=== PATIENT | male | born 1950 | race African-American/Black ===

== ENCOUNTER 2021-01-31 14:38 | Inpatient (IN) ==
[2021-01-31] MEDS ORDERED: FUROSEMIDE 100 MG/10 ML VIAL IV STA (15:21)
[2021-01-31 15:50] LABS: Basophils % 0.4 % (0.0-0.8); Eosinophils % 0.1 % (0.00-10.9); Hematocrit 32.3 VOL% (42.0-52.0); Immature Granulocytes % 0.4 %; Immature Granulocytes Absolute 0.03 #; Lymphocytes # 0.7 10*3/uL (1.4-4.0); Lymphocytes % 8.9 % (21.2-54.2); Mean Corpuscular Volume 95.3 FL (87-102); Mean Platelet Volume 12.2 FL (9.6-12.0); Neutrophils % 87.2 % (38.7-73.9); Platelet Count 161 T/CUMM (130-400); Red Blood Count 3.39 MC/CUMM (3.8-5.5); Red Cell Distribution Width 14.1 % (9.3-17.3); White Blood Count 7.6 T/CUMM (4-12)
[2021-01-31] MEDS ORDERED: LIDOCAINE 1% 20 ML VIAL ONE (15:58)
[2021-01-31] MEDS ORDERED: HYDROmorphone 2 MG/1 ML VIAL ONE (15:59)
[2021-01-31] MEDS ORDERED: MIDAZOLAM 2 MG/2 ML VIAL ONE (15:59)
[2021-01-31] MEDS ORDERED: diphenhydrAMINE CAP 25 MG CAPSULE PO ONE (16:00)
[2021-01-31] MEDS ORDERED: DIAZEPAM 5 MG TABLET PO ONE (16:00)
[2021-01-31] MEDS ORDERED: MAGNESIUM SULF RIDER 2 GM/50 ML PREMIX IV PRN (16:00)
[2021-01-31] MEDS ORDERED: POTASSIUM CHLORIDE RIDER 10 MEQ/100 ML PREMIX IV PRN (16:00)
[2021-01-31] MEDS ORDERED: NITROGLYCERIN SL 0.4 MG TABLET SL PRN (16:12)
[2021-01-31] MEDS ORDERED: ASPIRIN 325 MG TABLET ONE (16:13)
[2021-01-31 16:14] LABS: Albumin 3.4 G/DL (3.4-5.0); Bilirubin,Total 0.7 MG/DL (0.20-1.00); Calcium 10.2 MG/DL (8.5-10.1); Osmolality,Calculated 291.7 MOS/KG (273-304); Potassium 4.5 MMOL/L (3.5-5.1)
[2021-01-31] MEDS ORDERED: HEPARIN 5,000 UNIT/1 ML VIAL ONE (16:33)
[2021-01-31] MEDS ORDERED: TIROFIBAN 5,000 MCG/100 ML PREMIX IV ONE (17:06)
[2021-01-31] MEDS ORDERED: hydrALAZINE 20 MG/1 ML VIAL ONE (17:13)
[2021-01-31] MEDS ORDERED: PRASUGREL 10 MG TABLET ONE (17:17)
[2021-01-31] MEDS ORDERED: amLODIPine 5 MG TABLET PO STA (17:19)
[2021-01-31] MEDS ORDERED: TIROFIBAN 5,000 MCG/100 ML PREMIX IV SCH (17:30)
[2021-01-31] MEDS ORDERED: NALOXONE 0.4 MG/ML VIAL ONE (17:43)
[2021-01-31] MEDS ORDERED: NALOXONE 0.4 MG/ML VIAL IV STA ×2 (18:05→18:22)
[2021-01-31] MEDS ORDERED: PRASUGREL 10 MG TABLET PO STA (18:35)
[2021-01-31] MEDS ORDERED: FUROSEMIDE 40 MG/4 ML VIAL ONE (19:37)
[2021-01-31] MEDS ORDERED: FUROSEMIDE 40 MG/4 ML VIAL IV ONE (19:37)
[2021-01-31 20:10] LABS: CKMB % 3.1 %; High Sensitive Troponin I* 775.4 ng/L (0-78)
[2021-01-31] MEDS ORDERED: NITROGLYCERIN DRIP 50 MG/250 ML BOTTLE IV PRN (20:39)
[2021-01-31 21:00] LABS: ABG Base Excess -2.7 MMOL/L (-2.5-2.5); ABG HCO3 22.1 MMOL/L (20-26); ABG Oxygen Saturation 92.5 % (95-100); ABG PCO2 49.3 MM HG (35-48); ABG PH 7.297 (7.35-7.45); ABG PO2 76.3 MM HG (80-95); ABG TCO2 22.3 MMOL/L (23-27)
[2021-01-31] MEDS ORDERED: carvediloL 3.125 MG TABLET PO SCH (21:00)
[2021-01-31] MEDS ORDERED: carvediloL 6.25 MG TABLET PO SCH (21:00)
[2021-01-31] MEDS ORDERED: NALOXONE 0.4 MG/ML VIAL IV ONE (21:36)
[2021-01-31] MEDS: hydrALAZINE 25 MG TABLET PO SCH (22:02)
[2021-01-31] MEDS: ROSUVASTATIN 20 MG TABLET PO SCH (23:08)
[2021-02-01 04:04] LABS: ABG Base Excess 0.8 MMOL/L (-2.5-2.5); ABG Oxygen Saturation 84.7 % (95-100); ABG PCO2 41.4 MM HG (35-48); ABG PH 7.401 (7.35-7.45); ABG PO2 54.4 MM HG (80-95); ABG TCO2 23.6 MMOL/L (23-27)
[2021-02-01 05:44] LABS: Basophils % 0.3 % (0.0-0.8); Hematocrit 30.9 VOL% (42.0-52.0); Hemoglobin 9.5 GM/DL (14.0-18.0); Immature Granulocytes % 0.3 %; Immature Granulocytes Absolute 0.01 #; Lymphocytes # 0.5 10*3/uL (1.4-4.0); Lymphocytes % 15.1 % (21.2-54.2); Mean Corpuscular HGB Conc 30.7 GM/DL (32-36); Mean Corpuscular Volume 94.5 FL (87-102); Mean Platelet Volume 12.1 FL (9.6-12.0); Monocytes % 3.3 % (1.7-12.7); Platelet Count 148 T/CUMM (130-400); Red Blood Count 3.27 MC/CUMM (3.8-5.5); White Blood Count 3.3 T/CUMM (4-12)
[2021-02-01 05:55] LABS: CKMB % 5.8 %; High Sensitive Troponin I* 5256.1 ng/L (0-78)
[2021-02-01 06:07] LABS: Calcium 9.9 MG/DL (8.5-10.1); Osmolality,Calculated 289.8 MOS/KG (273-304); Potassium 4.3 MMOL/L (3.5-5.1)
[2021-02-01 06:20] LABS: Risk Ratio 2.49; VLDL Cholesterol 14.8 MG/DL
[2021-02-01 06:21] LABS: Acanthocytes Few; Band Neutrophils 11 % (0-10); Eosinophils 1 % (0-10); Hypochromasia 1+; Lymphocytes 12 % (20-55); Microcytosis Slight; Segmented Neutrophils 70 % (50-85); Total Cells Counted 100
[2021-02-01 06:22] LABS: Platelet Estimate Adequate
[2021-02-01] MEDS ORDERED: PRASUGREL 10 MG TABLET PO ONE (07:50)
[2021-02-01] MEDS: PRASUGREL 10 MG TABLET PO SCH (08:38)
[2021-02-01] MEDS: hydrALAZINE 25 MG TABLET PO SCH ×3 (08:50→21:07)
[2021-02-01] MEDS: MULTIVITAMIN (CENTRUM) TABLET PO SCH (08:50)
[2021-02-01] MEDS: FOLIC ACID INJ 1 MG in SYRINGE 1 EACH IV SCH (08:51)
[2021-02-01] MEDS: ASPIRIN EC 81 MG TABLET PO SCH (08:51)
[2021-02-01] MEDS: cefTRIAXone 1,000 MG in SODIUM CHLORIDE 0.9% 100 ML IV SCH (08:51)
[2021-02-01] MEDS ORDERED: LISINOPRIL/HCTZ 20-12.5 MG TABLET PO SCH (09:00)
[2021-02-01] MEDS ORDERED: carvediloL 6.25 MG TABLET PO SCH (09:00)
[2021-02-01] MEDS: THIAMINE 200 MG/2 ML VIAL IV SCH (09:20)
[2021-02-01] MEDS ORDERED: FUROSEMIDE 40 MG/4 ML VIAL IV SCH (09:30)
[2021-02-01] MEDS ORDERED: AZITHROMYCIN INJ 500 MG in SODIUM CHLORIDE 0.9% 250 ML IV ONE (10:00)
[2021-02-01] MEDS ORDERED: LORazepam 2 MG/1 ML VIAL IV ONE (10:55)
[2021-02-01] MEDS ORDERED: SUCCINYLCHOLINE 200 MG/10 ML VIAL ONE (11:19)
[2021-02-01] MEDS ORDERED: ETOMIDATE 20 MG/10 ML VIAL IV ONE ×2 (11:19→11:30)
[2021-02-01] MEDS ORDERED: MIDAZOLAM 100 MG in SODIUM CHLORIDE 0.9% 80 ML IV PRN (11:24)
[2021-02-01] MEDS ORDERED: SUCCINYLCHOLINE 200 MG/10 ML VIAL IV ONE (11:30)
[2021-02-01 12:05] LABS: ABG Base Excess -4.7 MMOL/L (-2.5-2.5); ABG HCO3 19.2 MMOL/L (20-26); ABG Oxygen Saturation 99.1 % (95-100); ABG PCO2 30.4 MM HG (35-48); ABG PH 7.418 (7.35-7.45); ABG TCO2 20.1 MMOL/L (23-27)
[2021-02-01] MEDS ORDERED: FUROSEMIDE 20 MG/2 ML VIAL IV ONE (18:30)
[2021-02-01] MEDS: ROSUVASTATIN 20 MG TABLET PO SCH (21:07)
[2021-02-02 04:29] LABS: ABG Base Excess 2.8 MMOL/L (-2.5-2.5); ABG Oxygen Saturation 99.6 % (95-100); ABG PCO2 24.2 MM HG (35-48); ABG TCO2 22.2 MMOL/L (23-27)
[2021-02-02 04:33] LABS: ABG PH 7.602 (7.35-7.45)
[2021-02-02 04:53] LABS: Basophils % 0.3 % (0.0-0.8); Eosinophils % 0.5 % (0.00-10.9); Hematocrit 23.8 VOL% (42.0-52.0); Hemoglobin 7.8 GM/DL (14.0-18.0); Immature Granulocytes % 0.5 %; Immature Granulocytes Absolute 0.03 #; Lymphocytes # 0.7 10*3/uL (1.4-4.0); Lymphocytes % 11.1 % (21.2-54.2); Mean Corpuscular HGB Conc 32.8 GM/DL (32-36); Mean Corpuscular Volume 90.5 FL (87-102); Mean Platelet Volume 11.9 FL (9.6-12.0); Monocytes % 2.5 % (1.7-12.7); NRBC # 0.02 10*3/uL; Neutrophils % 85.1 % (38.7-73.9); Platelet Count 127 T/CUMM (130-400); Red Blood Count 2.63 MC/CUMM (3.8-5.5)
[2021-02-02 05:12] LABS: Band Neutrophils 5 % (0-10); Eosinophils 1 % (0-10); Hypochromasia 1+; Lymphocytes 8 % (20-55); Microcytosis 1+; Segmented Neutrophils 85 % (50-85); Total Cells Counted 100
[2021-02-02 05:13] LABS: Platelet Estimate Normal
[2021-02-02 05:14] LABS: Albumin 2.7 G/DL (3.4-5.0); Bilirubin,Total 0.8 MG/DL (0.20-1.00); Calcium 8.9 MG/DL (8.5-10.1); Potassium 3.7 MMOL/L (3.5-5.1); Total Protein 5.2 G/DL (6.4-8.2)
[2021-02-02 06:23] LABS: ABG Base Excess 2.1 MMOL/L (-2.5-2.5); ABG HCO3 26.3 MMOL/L (20-26); ABG Oxygen Saturation 99.4 % (95-100); ABG PCO2 36.9 MM HG (35-48); ABG PH 7.455 (7.35-7.45)
[2021-02-02] MEDS: MULTIVITAMIN (CENTRUM) TABLET PO SCH (09:09)
[2021-02-02] MEDS: AZITHROMYCIN 250 MG TABLET PO SCH (09:09)
[2021-02-02] MEDS: PRASUGREL 10 MG TABLET PO SCH (09:09)
[2021-02-02] MEDS: ASPIRIN EC 81 MG TABLET PO SCH (09:09)
[2021-02-02] MEDS: cefTRIAXone 1,000 MG in SODIUM CHLORIDE 0.9% 100 ML IV SCH (09:10)
[2021-02-02] MEDS: hydrALAZINE 25 MG TABLET PO SCH ×3 (09:10→21:41)
[2021-02-02] MEDS: THIAMINE 200 MG/2 ML VIAL IV SCH (09:12)
[2021-02-02] MEDS ORDERED: MAGNESIUM SULF RIDER 2 GM/50 ML PREMIX IV ONE (10:57)
[2021-02-02] MEDS: methylPREDNISolone SOD SUC 40 MG/1 ML VIAL IV SCH ×2 (11:09→21:43)
[2021-02-02] MEDS: FOLIC ACID INJ 1 MG in SYRINGE 1 EACH IV SCH (11:10)
[2021-02-02] MEDS: ISOSORBIDE MONONITRATE 30 MG TABLET PO SCH (14:17)
[2021-02-02] MEDS: ROSUVASTATIN 20 MG TABLET PO SCH (21:44)
[2021-02-03 05:00] LABS: Hematocrit 24.7 VOL% (42.0-52.0); Hemoglobin 7.8 GM/DL (14.0-18.0); Immature Granulocytes % 0.4 %; Immature Granulocytes Absolute 0.04 #; Lymphocytes # 0.3 10*3/uL (1.4-4.0); Lymphocytes % 3.5 % (21.2-54.2); Mean Corpuscular HGB Conc 31.6 GM/DL (32-36); Mean Corpuscular Volume 93.2 FL (87-102); Mean Platelet Volume 11.9 FL (9.6-12.0); Monocytes % 1.7 % (1.7-12.7); NRBC # 0.02 10*3/uL; Neutrophils % 94.4 % (38.7-73.9); Platelet Count 117 T/CUMM (130-400); Red Blood Count 2.65 MC/CUMM (3.8-5.5); Red Cell Distribution Width 14.1 % (9.3-17.3); White Blood Count 9.4 T/CUMM (4-12)
[2021-02-03 05:21] LABS: Band Neutrophils 1 % (0-10); Lymphocytes 5 % (20-55); Platelet Estimate Normal; Segmented Neutrophils 93 % (50-85); Total Cells Counted 100
[2021-02-03 05:22] LABS: Hypochromasia Slight
[2021-02-03 05:48] LABS: Calcium 8.1 MG/DL (8.5-10.1); Osmolality,Calculated 302.6 MOS/KG (273-304); Potassium 3.3 MMOL/L (3.5-5.1)
[2021-02-03] MEDS ORDERED: POTASSIUM CHLORIDE 20 MEQ TABLET PO ONE (08:01)
[2021-02-03] MEDS ORDERED: POTASSIUM CHLORIDE 10 MEQ TABLET PO ONE (08:02)
[2021-02-03] MEDS: THIAMINE 200 MG/2 ML VIAL IV SCH (08:43)
[2021-02-03] MEDS: MULTIVITAMIN (CENTRUM) TABLET PO SCH (08:44)
[2021-02-03] MEDS: ASPIRIN EC 81 MG TABLET PO SCH (08:44)
[2021-02-03] MEDS: cefTRIAXone 1,000 MG in SODIUM CHLORIDE 0.9% 100 ML IV SCH (08:44)
[2021-02-03] MEDS: carvediloL 3.125 MG TABLET PO SCH ×2 (08:44→21:26)
[2021-02-03] MEDS: methylPREDNISolone SOD SUC 40 MG/1 ML VIAL IV SCH ×2 (08:44→21:26)
[2021-02-03] MEDS: CLOPIDOGREL 75 MG TABLET PO SCH (08:45)
[2021-02-03] MEDS: ISOSORBIDE MONONITRATE 30 MG TABLET PO SCH (08:45)
[2021-02-03] MEDS: AZITHROMYCIN 250 MG TABLET PO SCH (08:45)
[2021-02-03] MEDS ORDERED: FUROSEMIDE 40 MG/4 ML VIAL IV ONE (10:00)
[2021-02-03] MEDS: FOLIC ACID INJ 1 MG in SYRINGE 1 EACH IV SCH (10:09)
[2021-02-03] MEDS ORDERED: amLODIPine 10 MG TABLET PO ONE (12:01)
[2021-02-03] MEDS: ROSUVASTATIN 20 MG TABLET PO SCH (21:25)
[2021-02-04 05:30] LABS: Basophils % 0.1 % (0.0-0.8); Hematocrit 29.7 VOL% (42.0-52.0); Hemoglobin 9.4 GM/DL (14.0-18.0); Immature Granulocytes % 0.4 %; Immature Granulocytes Absolute 0.05 #; Lymphocytes # 0.3 10*3/uL (1.4-4.0); Lymphocytes % 2.4 % (21.2-54.2); Mean Corpuscular HGB Conc 31.6 GM/DL (32-36); Mean Corpuscular Volume 90.5 FL (87-102); NRBC # 0.02 10*3/uL; Neutrophils % 94.1 % (38.7-73.9); Platelet Count 153 T/CUMM (130-400); Red Blood Count 3.28 MC/CUMM (3.8-5.5); Red Cell Distribution Width 13.7 % (9.3-17.3)
[2021-02-04 05:47] LABS: Calcium 9.4 MG/DL (8.5-10.1); Osmolality,Calculated 302.7 MOS/KG (273-304)
[2021-02-04 06:06] LABS: Band Neutrophils 1 % (0-10); Lymphocytes 4 % (20-55); Platelet Estimate Normal; Segmented Neutrophils 94 % (50-85); Total Cells Counted 100
[2021-02-04 06:07] LABS: Acanthocytes Few; Anisocytosis 1+; Hypochromasia 1+
[2021-02-04] MEDS: ISOSORBIDE MONONITRATE 30 MG TABLET PO SCH (08:30)
[2021-02-04] MEDS: MULTIVITAMIN (CENTRUM) TABLET PO SCH (08:30)
[2021-02-04] MEDS: CLOPIDOGREL 75 MG TABLET PO SCH (08:30)
[2021-02-04] MEDS: THIAMINE 200 MG/2 ML VIAL IV SCH (08:31)
[2021-02-04] MEDS: carvediloL 3.125 MG TABLET PO SCH (08:31)
[2021-02-04] MEDS: ASPIRIN EC 81 MG TABLET PO SCH (08:31)
[2021-02-04] MEDS: amLODIPine 10 MG TABLET PO SCH (08:31)
[2021-02-04] MEDS: AZITHROMYCIN 250 MG TABLET PO SCH (08:31)
[2021-02-04] MEDS: FOLIC ACID 1 MG TABLET PO SCH (08:31)
[2021-02-04] MEDS: methylPREDNISolone SOD SUC 40 MG/1 ML VIAL IV SCH ×2 (08:31→21:21)
[2021-02-04] MEDS: cefTRIAXone 1,000 MG in SODIUM CHLORIDE 0.9% 100 ML IV SCH (08:32)
[2021-02-04] MEDS ORDERED: POTASSIUM CHLORIDE 20 MEQ TABLET PO ONE (09:07)
[2021-02-04 09:27] LABS: % Iron Saturation 14.8 % (18-50)
[2021-02-04] MEDS: ROSUVASTATIN 20 MG TABLET PO SCH (21:21)
[2021-02-04] MEDS: carvediloL 6.25 MG TABLET PO SCH (21:21)
[2021-02-05 05:25] LABS: Basophils % 0.1 % (0.0-0.8); Hematocrit 30.3 VOL% (42.0-52.0); Hemoglobin 9.5 GM/DL (14.0-18.0); Immature Granulocytes % 0.7 %; Immature Granulocytes Absolute 0.07 #; Lymphocytes # 0.3 10*3/uL (1.4-4.0); Lymphocytes % 2.5 % (21.2-54.2); Mean Corpuscular HGB Conc 31.4 GM/DL (32-36); Mean Corpuscular Volume 92.4 FL (87-102); Mean Platelet Volume 12.2 FL (9.6-12.0); Monocytes % 4.9 % (1.7-12.7); NRBC # 0.04 10*3/uL; Neutrophils % 91.8 % (38.7-73.9); Platelet Count 146 T/CUMM (130-400); Red Blood Count 3.28 MC/CUMM (3.8-5.5); Red Cell Distribution Width 13.5 % (9.3-17.3)
[2021-02-05 05:46] LABS: Calcium 9.3 MG/DL (8.5-10.1); Osmolality,Calculated 306.3 MOS/KG (273-304); Potassium 3.1 MMOL/L (3.5-5.1)
[2021-02-05 06:34] LABS: Band Neutrophils 1 % (0-10); Lymphocytes 3 % (20-55); Platelet Estimate Normal; Segmented Neutrophils 93 % (50-85); Total Cells Counted 100
[2021-02-05] MEDS ORDERED: POTASSIUM CHLORIDE 20 MEQ TABLET PO PRN (07:24)
[2021-02-05] MEDS: FOLIC ACID 1 MG TABLET PO SCH (10:14)
[2021-02-05] MEDS: AZITHROMYCIN 250 MG TABLET PO SCH (10:14)
[2021-02-05] MEDS: ASPIRIN EC 81 MG TABLET PO SCH (10:15)
[2021-02-05] MEDS: ISOSORBIDE MONONITRATE 30 MG TABLET PO SCH (10:15)
[2021-02-05] MEDS: CLOPIDOGREL 75 MG TABLET PO SCH (10:15)
[2021-02-05] MEDS: cefTRIAXone 1,000 MG in SODIUM CHLORIDE 0.9% 100 ML IV SCH (10:15)
[2021-02-05] MEDS: MULTIVITAMIN (CENTRUM) TABLET PO SCH (10:15)
[2021-02-05] MEDS: amLODIPine 10 MG TABLET PO SCH (10:15)
[2021-02-05] MEDS: methylPREDNISolone SOD SUC 40 MG/1 ML VIAL IV SCH ×2 (10:16→21:17)
[2021-02-05] MEDS: THIAMINE 200 MG/2 ML VIAL IV SCH (10:16)
[2021-02-05] MEDS: FUROSEMIDE 40 MG/4 ML VIAL IV SCH (10:16)
[2021-02-05] MEDS: carvediloL 6.25 MG TABLET PO SCH ×2 (10:19→21:17)
[2021-02-05] MEDS: hydrALAZINE 25 MG TABLET PO SCH ×3 (14:14→21:17)
[2021-02-05] MEDS: ROSUVASTATIN 20 MG TABLET PO SCH (21:17)
[2021-02-06 06:41] LABS: Basophils % 0.1 % (0.0-0.8); Hematocrit 32.9 VOL% (42.0-52.0); Hemoglobin 10.5 GM/DL (14.0-18.0); Immature Granulocytes Absolute 0.08 #; Lymphocytes # 0.3 10*3/uL (1.4-4.0); Lymphocytes % 3.1 % (21.2-54.2); Mean Corpuscular HGB Conc 31.9 GM/DL (32-36); Mean Corpuscular Volume 91.1 FL (87-102); Mean Platelet Volume 11.8 FL (9.6-12.0); Monocytes % 4.7 % (1.7-12.7); NRBC # 0.05 10*3/uL; Neutrophils % 91.1 % (38.7-73.9); Platelet Count 160 T/CUMM (130-400); Red Blood Count 3.61 MC/CUMM (3.8-5.5); Red Cell Distribution Width 13.3 % (9.3-17.3); White Blood Count 8.3 T/CUMM (4-12)
[2021-02-06 06:57] LABS: Calcium 9.1 MG/DL (8.5-10.1); Potassium 2.9 MMOL/L (3.5-5.1)
[2021-02-06 07:06] LABS: Hypochromasia 1+; Lymphocytes 3 % (20-55); Microcytosis 1+; Platelet Estimate Adequate; Segmented Neutrophils 96 % (50-85); Total Cells Counted 100
[2021-02-06] MEDS ORDERED: POTASSIUM CHLORIDE 20 MEQ TABLET PO ONE (08:35)
[2021-02-06] MEDS: cefTRIAXone 1,000 MG in SODIUM CHLORIDE 0.9% 100 ML IV SCH (09:36)
[2021-02-06] MEDS: ISOSORBIDE MONONITRATE 30 MG TABLET PO SCH (09:37)
[2021-02-06] MEDS: methylPREDNISolone SOD SUC 40 MG/1 ML VIAL IV SCH ×2 (09:37→21:47)
[2021-02-06] MEDS: THIAMINE 200 MG/2 ML VIAL IV SCH (09:37)
[2021-02-06] MEDS: FUROSEMIDE 40 MG/4 ML VIAL IV SCH (09:37)
[2021-02-06] MEDS: SPIRONOLACTONE 25 MG TABLET PO SCH ×2 (09:38→21:47)
[2021-02-06] MEDS: ASPIRIN EC 81 MG TABLET PO SCH (09:38)
[2021-02-06] MEDS: CLOPIDOGREL 75 MG TABLET PO SCH (09:38)
[2021-02-06] MEDS: MULTIVITAMIN (CENTRUM) TABLET PO SCH (09:38)
[2021-02-06] MEDS: hydrALAZINE 25 MG TABLET PO SCH ×3 (09:38→21:47)
[2021-02-06] MEDS: FOLIC ACID 1 MG TABLET PO SCH (09:38)
[2021-02-06] MEDS: amLODIPine 10 MG TABLET PO SCH (09:38)
[2021-02-06] MEDS: carvediloL 12.5 MG TABLET PO SCH ×2 (09:38→21:47)
[2021-02-06] MEDS: ROSUVASTATIN 20 MG TABLET PO SCH (21:47)
[2021-02-07 04:26] LABS: Basophils % 0.1 % (0.0-0.8); Hematocrit 31.5 VOL% (42.0-52.0); Hemoglobin 9.8 GM/DL (14.0-18.0); Immature Granulocytes % 0.6 %; Immature Granulocytes Absolute 0.07 #; Lymphocytes # 0.2 10*3/uL (1.4-4.0); Lymphocytes % 1.9 % (21.2-54.2); Mean Corpuscular HGB Conc 31.1 GM/DL (32-36); Mean Corpuscular Volume 91.8 FL (87-102); Mean Platelet Volume 12.2 FL (9.6-12.0); Monocytes % 2.4 % (1.7-12.7); NRBC # 0.03 10*3/uL; Platelet Count 181 T/CUMM (130-400); Red Blood Count 3.43 MC/CUMM (3.8-5.5); Red Cell Distribution Width 13.4 % (9.3-17.3); White Blood Count 11.2 T/CUMM (4-12)
[2021-02-07 04:51] LABS: Calcium 8.8 MG/DL (8.5-10.1); Hypochromasia 1+; Lymphocytes 1 % (20-55); Microcytosis 1+; Osmolality,Calculated 301.8 MOS/KG (273-304); Platelet Estimate Adequate; Potassium 3.5 MMOL/L (3.5-5.1); Segmented Neutrophils 96 % (50-85); Total Cells Counted 100
[2021-02-07] MEDS ORDERED: POTASSIUM CHLORIDE 20 MEQ TABLET PO ONE (07:38)
[2021-02-07] MEDS: cefTRIAXone 1,000 MG in SODIUM CHLORIDE 0.9% 100 ML IV SCH (08:59)
[2021-02-07] MEDS: FUROSEMIDE 40 MG/4 ML VIAL IV SCH (08:59)
[2021-02-07] MEDS: SPIRONOLACTONE 25 MG TABLET PO SCH (09:00)
[2021-02-07] MEDS: hydrALAZINE 25 MG TABLET PO SCH ×3 (09:00→22:03)
[2021-02-07] MEDS: FOLIC ACID 1 MG TABLET PO SCH (09:00)
[2021-02-07] MEDS: methylPREDNISolone SOD SUC 40 MG/1 ML VIAL IV SCH ×2 (09:00→22:02)
[2021-02-07] MEDS: CLOPIDOGREL 75 MG TABLET PO SCH (09:00)
[2021-02-07] MEDS: THIAMINE 200 MG/2 ML VIAL IV SCH (09:00)
[2021-02-07] MEDS: ASPIRIN EC 81 MG TABLET PO SCH (09:00)
[2021-02-07] MEDS: ISOSORBIDE MONONITRATE 30 MG TABLET PO SCH (09:01)
[2021-02-07] MEDS: amLODIPine 10 MG TABLET PO SCH (09:01)
[2021-02-07] MEDS: MULTIVITAMIN (CENTRUM) TABLET PO SCH (09:01)
[2021-02-07] MEDS: carvediloL 12.5 MG TABLET PO SCH ×2 (09:01→22:03)
[2021-02-07] MEDS: ROSUVASTATIN 20 MG TABLET PO SCH (22:03)
[2021-02-08 05:07] LABS: Basophils % 0.1 % (0.0-0.8); Hematocrit 30.8 VOL% (42.0-52.0); Hemoglobin 9.8 GM/DL (14.0-18.0); Immature Granulocytes % 0.7 %; Immature Granulocytes Absolute 0.12 #; Lymphocytes # 0.2 10*3/uL (1.4-4.0); Lymphocytes % 1.4 % (21.2-54.2); Mean Corpuscular HGB Conc 31.8 GM/DL (32-36); Mean Corpuscular Volume 91.4 FL (87-102); Mean Platelet Volume 11.8 FL (9.6-12.0); Monocytes % 2.3 % (1.7-12.7); NRBC # 0.02 10*3/uL; Neutrophils % 95.5 % (38.7-73.9); Platelet Count 194 T/CUMM (130-400); Red Blood Count 3.37 MC/CUMM (3.8-5.5); Red Cell Distribution Width 13.5 % (9.3-17.3); White Blood Count 16.8 T/CUMM (4-12)
[2021-02-08 05:28] LABS: Hypochromasia 1+; Lymphocytes 1 % (20-55); Microcytosis 1+; Platelet Estimate Adequate; Segmented Neutrophils 97 % (50-85); Total Cells Counted 100
[2021-02-08 05:45] LABS: Calcium 8.9 MG/DL (8.5-10.1); Potassium 3.7 MMOL/L (3.5-5.1)
[2021-02-08] MEDS ORDERED: SPIRONOLACTONE 25 MG TABLET PO SCH (09:00)
[2021-02-08] MEDS ORDERED: FUROSEMIDE 40 MG TABLET PO SCH (09:00)
[2021-02-08] MEDS: THIAMINE 200 MG/2 ML VIAL IV SCH (09:45)
[2021-02-08] MEDS: cefTRIAXone 1,000 MG in SODIUM CHLORIDE 0.9% 100 ML IV SCH (09:45)
[2021-02-08] MEDS: methylPREDNISolone SOD SUC 40 MG/1 ML VIAL IV SCH (09:45)
[2021-02-08] MEDS: amLODIPine 10 MG TABLET PO SCH (09:46)
[2021-02-08] MEDS: carvediloL 12.5 MG TABLET PO SCH (09:46)
[2021-02-08] MEDS: MULTIVITAMIN (CENTRUM) TABLET PO SCH (09:47)
[2021-02-08] MEDS: ISOSORBIDE MONONITRATE 30 MG TABLET PO SCH (09:47)
[2021-02-08] MEDS: FOLIC ACID 1 MG TABLET PO SCH (09:47)
[2021-02-08] MEDS: ASPIRIN EC 81 MG TABLET PO SCH (09:47)
[2021-02-08] MEDS: CLOPIDOGREL 75 MG TABLET PO SCH (09:47)
[2021-02-08 11:24] VITALS: BP 149/71
[2021-02-08] MEDS: hydrALAZINE 25 MG TABLET PO SCH (15:56)
== END 2021-02-08 14:15 | DRG 246 ==
LOC: EDSEX → N.ED 14:38 → N.TELEN 15:27 → SUATTDRO 15:27 → N.ICU 15:46 → N.TELEN 02-04 17:55
PROVIDERS: ADMIT Internal Medicine Cardiovascular Disease; ATTEND Internal Medicine
PROC: CLCCHCL (ICD-10-PCS; 2021-01-31 16:45)